=== PATIENT | female | born 1955 | race Caucasian/White ===

== ENCOUNTER 2023-10-12 08:49 | Emergency (ER) | payer MEDICARE, SELFPAY ==
[2023-10-12 08:52] VITALS: BP 148/82
--- NOTE | 2023-10-12 09:26 | ED.CVA ---
History of Present Illness
General
Chief Complaint: CVA/TIA Symptoms
Source: patient
Exam Limitations: none
Time Seen by Provider: 10/12/23 09:03
Nursing documentation reviewed up to this point in time: agreed with
Onset of Stroke Symptoms
Onset of symptoms known: Yes
Date of onset of symptoms: 10/12/23
Time of onset of symptoms: 06:45
Travel History
Have you had any contact with someone who has COVID-19?: No
Do you have any symptoms of coronavirus? Fever > 100 degrees, chills, cough, shortness of breath, sore throat, loss of taste or smell, muscle aches, or headache?: No
History of Present Illness
History of Present Illness:
68 yo female w h/o IDDM, triple cardiac bypass 07/2022, had Covid 08/08/23, states she awakened to her alarm 6:30 this a.m., lay in bed for a while, felt fine, went to get up and became extremely imbalances, listing to right, needed help ambulating.
Vision slightly blurred and 'everything looked crooked.' Within 30-40 minutes, symptoms much improved but still with 'foggy' in head and vision both eyes 'a little blurry.' Since then, room spins every time she goes to lay back or turn her head
from side to side.
Denies n/v. Denies fever. Had blood draining from right ear 5 days ago w no pain in the ear. [place]. Has had some sinus stuffiness and frequent small nose bleeds in the mornings past few weeks (on Clopidogrel and ASA).
Denies CP, SOB, abd pain. Denies weakness/numbness in her extremities.
Patient meds:
Insulin: Humalog, Tresiba,
Lunesta
Clopidogrel
ASA
Carvedilol
Past History
Past History
ED Past Medical History: CAD, HTN and IDDM
ED Past Surgical History: Cardiac and
Social History
Tobacco: Non-smoker
Alcohol: None
Drug: None
Personal:
Living: with family
Review of Systems
Review of Systems
Allergies reviewed?: Yes
All Other Systems: ROS reviewed and negative except as documented in HPI and ROS
Constitutional: Denies fever or fatigue
EENT: Reports other (bleeding from right ear 5 days ago, no ear pain, no hearing deficit); Denies sore throat
Respiratory: Denies trouble breathing
Cardiac: Denies chest pain
ABD/GI: Denies abdominal pain, nausea, vomiting or diarrhea
: Denies dysuria, frequency or difficulty voiding
Musculoskeletal: Reports other (R sciatica sees chiropractor)
Skin: Reports no symptoms
Neurological: Reports dizzy; Denies headache, weakness or numbness
Phy Exam
Physical Exam
Physical Exam:
GENERAL: No acute distress. A&Ox3.
CONSTITUTIONAL: Afebrile.
EYES: PERRL, conjunctivae normal
Neck: Supple
ENMT: moist mucus membranes, Pharynx nl
RESPIRATORY: Regular respirations, nonlabored, lungs clear.
CARDIOVASCULAR: Regular rate and rhythm, no murmurs, no rubs.
GI: Soft, nontender, normal BS
MUSCULOSKELETAL: Moves with ease. Well perfused.
SKIN: Warm, dry, pink
PSYCH: Normal mood and affect. Well kept, interactive and appropriate
NEUROLOGIC: Awake, alert and oriented. Speech clear. Cranial nerves II through XII intact. No focal neurological deficits. Strength equal throughout 12/05. Ambulates well with steady gait.
Course
Orders/Labs/Results
Orders:
Orders
10/12/23 09:21
CT Head W/o Iv Contrast Urgent
Comment:
Reason For Exam: dizziness, ataxia
10/12/23 09:26
Complete Blood Count/With Diff Urgent
Comprehensive Metabolic Panel Urgent
10/12/23 10:09
Physical Therapy Consult [Pt Eval And Treat] Urgent
Treatment: Vestibular evaluation
Activity Level: As Tolerated
10/12/23 11:45
diazePAM [Valium Injection] 2 mg IV NOW STA
Abnormal Lab Results
10/12/23
09:26
Sodium 132 L mmol/L
(135-145)
Glucose 142 H mg/dl
(70-99)
AST 38 H U/L
(14-36)
10/12/23 09:26
10/12/23 09:26
Vital Signs
Initial and Last Documented VS:
Initial Vital Signs
Temp Pulse Resp BP Pulse Ox
98.8 F 68 18 148/82 99
10/12/23 08:52 10/12/23 08:52 10/12/23 08:52 10/12/23 08:52 10/12/23 08:52
Last Documented Vital Signs
Temp Pulse Resp BP Pulse Ox
98.8 F 64 16 136/60 100
10/12/23 08:52 10/12/23 10:43 10/12/23 10:43 10/12/23 10:43 10/12/23 10:43
MDM/Problems Addressed
Differential Diagnosis Includes:
BPPV, labyrinthitis, TIA/CVA
MDM/Problems Addressed:
68 yo female w h/o IDDM, triple cardiac bypass 07/2022, had covid 08/08/23, states she awakened to her alarm 6:30 this a.m., lay in bed for a while, felt fine, went to get up and became extremely imbalances, listing to right, needed help ambulating.
Vision slightly blurred and 'everything looked crooked.' Within 30-40 minutes, symptoms much improved but still with 'foggy' in head and vision both eyes 'a little blurry.' Since then, room spins every time she goes to lay back or turn her head
from side to side.
Denies n/v. Denies fever. Had blood draining from right ear 5 days ago w no pain in the ear. [place]. Has had some sinus stuffiness and frequent small nose bleeds in the mornings past few weeks (on Clopidogrel and ASA).
Denies CP, SOB, abd pain. Denies weakness/numbness in her extremities.
10/12/2023 1043 AM
CBC normal
CMP sodium mildly low at [address]: No acute abnormality
10/12/2023 1155 AM
P/T eval: positive for BPPV with right nystagmus, [place] Hallpike, Epply maneuver positive.
Pt OOB and ambulating, feeling better after P/T eval.
Valium 2 mg IV given
Prescription for meclizine sent to her pharmacy
Orthostatics negative
On discharge, pt ambulated out with normal gait
*Critical Care Note
Total Time (30-74mins, 75-104mins- exclusive of procedures): Not Applicable
ED Attending Note
-
Portions of this chart may have been created with voice recognition software.� Occasional wrong word or��sound alike� substitutions may have occurred due to the inherent limitations of voice recognition software.
Discharge Plan
Departure
Patient Disposition: Home (Routine Discharge)
Date of Disposition: 10/12/23
Time of Disposition: 11:56
Patient with high blood pressure during this ER visit?: No
Discharge Problem:
Benign paroxysmal positional vertigo of right ear
Instructions: Vertigo (a type of dizziness), Vestibular Exercises
Prescriptions:
New
meclizine 25 mg tablet
25 mg PO TID PRN (Reason: dizziness) Qty: 30 0RF
No Action
insulin lispro [Humalog KwikPen Insulin] 100 unit/mL insulin pen
1 - 8 unit SC AC
eszopiclone [Lunesta] 2 mg Tablet
2 mg PO HSPRN PRN (Reason: sleep)
clopidogrel 75 mg Tablet
75 mg PO DAILY Qty: 30 1RF
aspirin 81 mg Tablet,Chewable
81 mg PO DAILY Qty: 90 3RF
atorvastatin [Lipitor] 80 mg Tablet
80 mg PO HS
carvedilol [Coreg] 12.5 mg Tablet
12.5 mg PO BID
vitamin B complex [B Complete] Tablet
1 tab PO DAILY
insulin degludec [Tresiba FlexTouch U-100] 100 unit/mL (3 mL) Insulin Pen
14 unit SC HS
Referrals:
[facility] [Other] - As needed
Sabrina Pa NP [Family Provider] -
Activity Restrictions/Additional Instructions:
As we discussed, I sent a prescription to your pharmacy for meclizine you may take 25-50 mg every 6 hours as needed for dizziness.
If your symptoms persist beyond the next 2 days, call the vestibular clinic program on the handout physical therapy gave you and make an appointment for reevaluation
No driving until your symptoms resolve
Interventions
Interventions:
*Risk Screen - Suicide Last Done: 10/12/23 09:04
*General Assessment Last Done: 10/12/23 10:49
*Neglect/Abuse Screening Last Done: 10/12/23 09:03
ED- Fall Risk Assessment Last Done: 10/12/23 12:37
*ED COVID-19 Vaccine History Last Done: 10/12/23 12:37
*Nursing Disposition Last Done: 10/12/23 12:37
ED- Pulmonary Assessment Last Done: 10/12/23 09:25
ED- Neurological Assessment Last Done: 10/12/23 09:25
ED- Cardiac Assessment Last Done: 10/12/23 09:25
Discharge Date and Time
Discharge Date/Time: 10/12/23 12:38
[2023-10-12 09:28] VITALS: BMI 22.2
[2023-10-12 09:33] LABS: % Basophils 0.4 % (0-2); % Eosinophils 2.6 % (0-6); % Immature Granulocytes 0.3 % (0-0.5); % Lymphocytes 21.5 % (20.5-51.1); % Monocytes 7.4 % (1.7-9.3); % Neutrophils 67.8 % (42.2-75.2); Absolute Eosinophils 0.2 10^3/uL (0-0.7); Absolute Lymphocytes 1.5 10^3/uL (1.2-3.4); Absolute Monocytes 0.5 10^3/uL (0.1-0.6); Absolute Neutrophils 4.8 10^3/uL (1.4-6.5); Hematocrit 40.2 % (37.0-47.0); Hemoglobin 13.7 g/dL (12.0-16.0); Mean Corp Hgb Conc. 34.1 g/dL (33.0-37.0); Mean Corpuscular Hgb 29.5 pg (27.0-31.0); Mean Corpuscular Volume 86.5 fL (81.0-99.0); Mean Platelet Volume 9.4 fL (7.4-10.4); Nucleated Red Blood Cells % 0 %; Platelet Count 305 10^3/uL (130-400); Red Blood Cell Count 4.65 10^6/uL (4.20-5.40); Red Cell Dist. Width 12.9 % (11.5-14.5)
[2023-10-12 09:45] LABS: ALT (SGPT) 33 U/L (0-35); AST (SGOT) 38 U/L (14-36); Albumin 4.2 g/dl (3.5-5.0); Alkaline Phosphatase 103 U/L (38-126); Blood Urea Nitrogen 17 mg/dl (7-17); Carbon Dioxide 27 mmol/L (22-30); Chloride 101 mmol/L (98-107); Estimated Creatinine Clearance 75 ml/min; Glucose 142 mg/dl (70-99); Potassium 4.9 mmol/L (3.5-5.1); Sodium 132 mmol/L (135-145); Total Bilirubin 0.7 mg/dl (0.2-1.3); Total Protein 6.9 g/dl (6.3-8.2); eGFR > 60.00
[2023-10-12 10:43] VITALS: BP 136/60
[2023-10-12 11:57] VITALS: BP 145/83; BP 177/88; BP 193/77; PULSE 76; PULSE 77; PULSE 84
[2023-10-12] MEDS: VALIUM INJECTION 2 MG IV (12:04)
== END 2023-10-12 12:38 | disposition home or self-care (01) ==
LOC: EMR 08:49
PROVIDERS: Registered Nurse; EMERGENCY PHYSICIAN Emergency Medicine; FAMILY PHYSICIAN Nurse Practitioner Adult Health
DX: H81.11 Benign paroxysmal vertigo, right ear (principal); E11.9 Type 2 diabetes mellitus without complications; I25.10 Atherosclerotic heart disease of native coronary artery without angina pectoris; I10 Essential (primary) hypertension; Z79.4 Long term (current) use of insulin; Z95.1 Presence of aortocoronary bypass graft; Z86.16 Personal history of COVID-19; Z88.2 Allergy status to sulfonamides; Z79.82 Long term (current) use of aspirin
CPT/HCPCS: 99284; 96374; 70450; 80053; 85025

== ENCOUNTER 2024-03-19 19:00 | Emergency (ER) | payer MEDICARE, SELFPAY ==
[2024-03-19 19:03] VITALS: BP 138/104
[2024-03-19 19:34] LABS: % Basophils 0.7 % (0-2); % Immature Granulocytes 0.4 % (0-0.5); % Lymphocytes 23.8 % (20.5-51.1); % Monocytes 8.3 % (1.7-9.3); % Neutrophils 64.8 % (42.2-75.2); Absolute Basophils 0.1 10^3/uL (0-0.2); Absolute Eosinophils 0.2 10^3/uL (0-0.7); Absolute Lymphocytes 1.8 10^3/uL (1.2-3.4); Absolute Monocytes 0.6 10^3/uL (0.1-0.6); Absolute Neutrophils 4.9 10^3/uL (1.4-6.5); Hematocrit 35.9 % (37.0-47.0); Hemoglobin 12.8 g/dL (12.0-16.0); Mean Corp Hgb Conc. 35.7 g/dL (33.0-37.0); Mean Corpuscular Hgb 29.4 pg (27.0-31.0); Mean Corpuscular Volume 82.3 fL (81.0-99.0); Mean Platelet Volume 9.1 fL (7.4-10.4); Nucleated Red Blood Cells % 0 %; Platelet Count 397 10^3/uL (130-400); Red Blood Cell Count 4.36 10^6/uL (4.20-5.40); Red Cell Dist. Width 12.2 % (11.5-14.5); White Blood Cell Count 7.6 10^3/uL (4.8-10.8)
[2024-03-19 19:55] LABS: ALT (SGPT) 17 U/L (0-35); AST (SGOT) 28 U/L (14-36); Albumin 4.1 g/dl (3.5-5.0); Alkaline Phosphatase 145 U/L (38-126); Blood Urea Nitrogen 15 mg/dl (7-17); Calcium 9.5 mg/dl (8.4-10.2); Carbon Dioxide 29 mmol/L (22-30); Chloride 92 mmol/L (98-107); Glucose 317 mg/dl (70-99); Potassium 4.8 mmol/L (3.5-5.1); Sodium 128 mmol/L (135-145); Total Bilirubin 0.6 mg/dl (0.2-1.3); Total Protein 6.8 g/dl (6.3-8.2); eGFR > 60.00
[2024-03-19 19:59] LABS: Troponin I < 0.012 ng/ml
--- NOTE | 2024-03-19 20:00 | ED.GENMED ---
History of Present Illness
General
Chief Complaint: Heart Rate Problem
Source: patient
Exam Limitations: none
Time Seen by Provider: 03/19/24 19:32
History of Present Illness
History of Present Illness:
69-year-old female with history of coronary artery disease requiring triple bypass surgery over a year ago presents with intermittent episodes of palpitations and fluttering in the center of her chest. There is no associated significant discomfort.
No shortness of breath nausea or vomiting. No diaphoresis. No leg swelling or calf pain. She is on aspirin and Plavix. She currently denies any symptoms and feels back to normal.
Past History
Past History
ED Past Medical History: CAD, HTN and IDDM
ED Past Surgical History: Cardiac and
Social History
Tobacco: Non-smoker
Alcohol: None
Drug: None
Personal:
Living: with family
Phy Exam
Physical Exam
Physical Exam:
General: Well-appearing female no acute respiratory distress
HEENT: Normocephalic atraumatic
Heart: Regular rate and rhythm no murmurs
Lungs: Clear no wheeze or rales
Extremities: No cyanosis or edema
Skin: Warm no rash
Course
Orders/Labs/Results
Orders:
Orders
03/19/24 19:06
ECG [Electrocardiogram (*1)] Urgent
Reason for Study: Bradycardia / Tachycardia
EKG- Treatment ONCE
03/19/24 19:19
CR Chest - 2 Views Urgent
Comment:
Reason For Exam: palpatations
03/19/24 19:25
Complete Blood Count/With Diff Urgent
Comprehensive Metabolic Panel Urgent
Magnesium Urgent
TSH Urgent
Troponin I Urgent
03/19/24 22:17
Apixaban [Eliquis] 5 mg PO NOW STA
03/19/24 22:23
Diltiazem Sustained Release [Cardizem Sr] 120 mg PO NOW STA
Abnormal Lab Results
03/19/24
19:25
Hct 35.9 L %
(37.0-47.0)
Sodium 128 L mmol/L
(135-145)
Chloride 92 L mmol/L
(98-107)
Glucose 317 H mg/dl
(70-99)
Alkaline Phosphatase 145 H U/L
(38-126)
03/19/24 19:25
03/19/24 19:25
Vital Signs
Initial and Last Documented VS:
Initial Vital Signs
Temp Pulse Resp BP Pulse Ox
98.0 F 79 18 138/104 99
03/19/24 19:03 03/19/24 19:03 03/19/24 19:03 03/19/24 19:03 03/19/24 19:03
Last Documented Vital Signs
Temp Pulse Resp BP Pulse Ox
98.0 F 71 12 129/66 98
03/19/24 19:03 03/19/24 20:45 03/19/24 20:45 03/19/24 20:45 03/19/24 20:45
MDM/Problems Addressed
Differential Diagnosis Includes:
Palpitations. Consider arrhythmia anemia electrolyte abnormality. Patient denies chest pain. She does have coronary artery disease history. EKG through triage shows sinus rhythm without ischemic changes. Labs pending including TSH troponin.
Chest x-ray pending as well
*Critical Care Note
Total Time (30-74mins, 75-104mins- exclusive of procedures): Not Applicable
Update Note
Update Note:
Chest x-ray clear. Notably, sodium is 128. Troponin undetectable. Patient did have
Several episodes of palpitations while here. On the monitor does appear that patient has atrial fibrillation. Her heart rate went as high as 120s however this lasted only for was back down to rate controlled sinus rhythm. Discussed findings with
emergency room attending as well as cardiology on-call. Per cardiology recommendations, we will stop clopidogrel and start Eliquis. We will add diltiazem 120 mg daily. The patient will follow-up with cardiology this week. She is hemodynamically
stable otherwise.
ED Attending Note
-
Portions of this chart may have been created with voice recognition software.� Occasional wrong word or��sound alike� substitutions may have occurred due to the inherent limitations of voice recognition software.
Discharge Plan
Departure
Patient Disposition: Home (Routine Discharge)
Date of Disposition: 03/19/24
Time of Disposition: 22:26
Patient with high blood pressure during this ER visit?: No
Discharge Problem:
Atrial fibrillation
Instructions: Atrial Fibrillation (DC)
Prescriptions:
New
Eliquis 5 mg tablet
5 mg PO BID Qty: 60 0RF
diltiazem HCl 120 mg capsule,extended release 24hr
120 mg PO DAILY Qty: 30 0RF
No Action
insulin lispro [Humalog KwikPen Insulin] 100 unit/mL insulin pen
1 - 8 unit SC AC
eszopiclone [Lunesta] 2 mg Tablet
2 mg PO HSPRN PRN (Reason: sleep)
clopidogrel 75 mg Tablet
75 mg PO DAILY Qty: 30 1RF
aspirin 81 mg Tablet,Chewable
81 mg PO DAILY Qty: 90 3RF
atorvastatin [Lipitor] 80 mg Tablet
80 mg PO HS
carvedilol [Coreg] 12.5 mg Tablet
12.5 mg PO BID
vitamin B complex [B Complete] Tablet
1 tab PO DAILY
insulin degludec [Tresiba FlexTouch U-100] 100 unit/mL (3 mL) Insulin Pen
14 unit SC HS
meclizine 25 mg tablet
25 mg PO TID PRN (Reason: dizziness) Qty: 30 0RF
Referrals:
Tong Frederick DO [Active] -
Sabrina Pa NP [Family Provider] -
Activity Restrictions/Additional Instructions:
Stop Plavix. Start Eliquis. Add diltiazem daily. The cardiology team will follow up with you this week. Please return here for worsening symptoms
Interventions
Interventions:
*Risk Screen - Suicide Last Done: 03/19/24 19:03
*General Assessment Last Done: 03/19/24 19:03
*Neglect/Abuse Screening Last Done: 03/19/24 19:03
ED- Cardiac Assessment Last Done: 03/19/24 20:13
ED- Pulmonary Assessment Last Done: 03/19/24 20:13
Discharge Date and Time
Print Language: MAORI
[2024-03-19 20:17] LABS: TSH 0.79 uIU/ml (0.47-4.68)
[2024-03-19 20:45] VITALS: BP 129/66
[2024-03-19 21:00] VITALS: BP 144/69
[2024-03-19 22:00] VITALS: BP 149/74
[2024-03-19] MEDS: ELIQUIS 5 MG PO (22:34)
[2024-03-19] MEDS: CARDIZEM SR 120 MG PO (22:35)
== END 2024-03-19 22:45 | disposition home or self-care (01) ==
LOC: EMR 19:00
PROVIDERS: EMERGENCY PHYSICIAN Emergency Medicine; FAMILY PHYSICIAN Nurse Practitioner Adult Health
DX: I49.8 Other specified cardiac arrhythmias (principal); I48.91 Unspecified atrial fibrillation; I25.10 Atherosclerotic heart disease of native coronary artery without angina pectoris; E11.9 Type 2 diabetes mellitus without complications; I10 Essential (primary) hypertension; Z95.1 Presence of aortocoronary bypass graft; Z79.02 Long term (current) use of antithrombotics/antiplatelets; Z79.82 Long term (current) use of aspirin; Z79.4 Long term (current) use of insulin; Z88.2 Allergy status to sulfonamides
CPT/HCPCS: 99283; 71046; 80053; 83735; 84443; 84484; 85025; 93005

== ENCOUNTER → 2024-11-22 09:09 | Outpatient (REF) | payer MEDICARE, SELFPAY | LOC: RCS 09:09 | PROVIDERS: ATTENDING PHYSICIAN Physician Assistant | DX: I49.8 Other specified cardiac arrhythmias (principal) | CPT/HCPCS: 93225; 93226 ==

== ENCOUNTER 2025-03-15 14:35 | Emergency (ER) | payer MEDICARE, SELFPAY ==
[2025-03-15 14:37] VITALS: BP 193/88
--- NOTE | 2025-03-15 15:40 | ED.GENMED ---
History of Present Illness
General
Chief Complaint: Fall
Source: patient and spouse
Exam Limitations: none
Time Seen by Provider: 03/15/25 15:12
History of Present Illness
History of Present Illness:
69-year-old female fell 9 days ago on vacation tripped went into a bunk bed with her face had a mild headache which improved with Tylenol, she has had some ecchymosis and bruising on her face saw her PCP who referred her to the ER for evaluation no
neck pain no paresthesias no abdominal pain overall is feeling better she is concerned because the bruising looked worse,
Past History
Past History
ED Past Medical History: Arrthythmia, CAD, HTN and IDDM
ED Past Surgical History: Cardiac and
Social History
Tobacco: Non-smoker
Alcohol: None
Drug: None
Personal:
Living: with family
Employment: Retired
Review of Systems
Review of Systems
All Other Systems: Not applicable
Constitutional: Denies fever
EENT: Reports no symptoms
Respiratory: Reports no symptoms
Cardiac: Reports no symptoms
ABD/GI: Reports no symptoms
Skin: Reports other (Bruising)
Neurological: Reports no symptoms
Hematologic/Lymphatic: Reports bruising
Phy Exam
Physical Exam
Physical Exam:
Physical Exam
General: no apparent distress, not acutely ill
Neck: No posterior neck pain no tongue bite bruising bilateral eyes left midface
Heart: Regular
Lungs: no acute respiratory distress.
Neuro: alert and oriented. no focal neurological deficits
Skin: no rash
Psychiatric: well kept. interactive and cooperative
Extremities: no edema.
Course
Orders/Labs/Results
Orders:
Orders
03/15/25 14:38
CT Head W/o Iv Contrast Urgent
Comment:
Reason For Exam: fell one wk ago pt is on bld thinner
03/15/25 15:12
CT Cervical Spine W/o Iv Contr Urgent
Comment:
Reason For Exam: fall
03/15/25 15:31
CT Facial Bones W/o Iv Contras Urgent
Comment:
Reason For Exam: fall
Vital Signs
Initial and Last Documented VS:
Initial Vital Signs
Temp Pulse Resp BP Pulse Ox
98.8 F 76 16 193/88 98
03/15/25 14:37 03/15/25 14:37 03/15/25 14:37 03/15/25 14:37 03/15/25 14:37
Last Documented Vital Signs
Temp Pulse Resp BP Pulse Ox
98.8 F 76 16 193/88 98
03/15/25 14:37 03/15/25 14:37 03/15/25 14:37 03/15/25 14:37 03/15/25 14:37
MDM/Problems Addressed
Differential Diagnosis Includes:
Contusion C-spine fracture intracerebral hemorrhage facial bone fracture
MDM/Problems Addressed:
Coagulation fall
Chronic conditions affecting care: Arrhythmia
Acute Exacerbation and/or Progression of Chronic Illness: Arrhythmia
*Radiology
Radiology exam reviewed: radiology read reviewed
*Pulse Oximetry
SaO2: 98
Oxygen Mode of Delivery: Room air
Patient hypoxic: no
*Critical Care Note
Total Time (30-74mins, 75-104mins- exclusive of procedures): Not Applicable
ED Attending Note
-
Portions of this chart may have been created with voice recognition software.� Occasional wrong word or��sound alike� substitutions may have occurred due to the inherent limitations of voice recognition software.
Discharge Plan
Departure
Prescriptions:
No Action
insulin lispro [Humalog KwikPen Insulin] 100 unit/mL insulin pen
1 - 8 unit SC AC
eszopiclone [Lunesta] 2 mg Tablet
2 mg PO HSPRN PRN (Reason: sleep)
clopidogrel 75 mg Tablet
75 mg PO DAILY Qty: 30 1RF
aspirin 81 mg Tablet,Chewable
81 mg PO DAILY Qty: 90 3RF
atorvastatin [Lipitor] 80 mg Tablet
80 mg PO HS
carvedilol [Coreg] 12.5 mg Tablet
12.5 mg PO BID
vitamin B complex [B Complete] Tablet
1 tab PO DAILY
insulin degludec [Tresiba FlexTouch U-100] 100 unit/mL (3 mL) Insulin Pen
14 unit SC HS
meclizine 25 mg tablet
25 mg PO TID PRN (Reason: dizziness) Qty: 30 0RF
Eliquis 5 mg tablet
5 mg PO BID Qty: 60 0RF
diltiazem HCl 120 mg capsule,extended release 24hr
120 mg PO DAILY Qty: 30 0RF
Referrals:
Luis Daniel Kelley PA-C [Family Provider]
Interventions
Interventions:
*General Assessment Last Done: 03/15/25 15:27
ED-Musculoskeletal Assessment Last Done: 03/15/25 15:27
ED- Neurological Assessment Last Done: 03/15/25 15:27
ED-Skin Assessment Last Done: 03/15/25 15:27
Discharge Date and Time
Print Language: PORTUGUESE
[2025-03-15] MEDS: TYLENOL 650 MG PO (17:03)
== END 2025-03-15 18:19 | disposition home or self-care (01) ==
LOC: EMR 14:35
PROVIDERS: EMERGENCY PHYSICIAN Emergency Medicine; FAMILY PHYSICIAN Physician Assistant Medical
DX: S09.90XA Unspecified injury of head, initial encounter (principal); W19.XXXA Unspecified fall, initial encounter; R51.9 Headache, unspecified; I25.10 Atherosclerotic heart disease of native coronary artery without angina pectoris; I10 Essential (primary) hypertension; E11.9 Type 2 diabetes mellitus without complications; Z79.4 Long term (current) use of insulin
CPT/HCPCS: 99284; 70450; 70486; 72125